=== PATIENT | female | born 1950 | race American Indian/Alaskan Native ===

== ENCOUNTER 2018-05-03 07:54 | Outpatient (CLI) | payer MEDICARE ==
--- NOTE | 2018-05-03 18:31 | Cat Scan Report ---
FINAL REPORT EXAM: CT ABDOMEN PELVIS WO CON HISTORY: COLICKY LOWER LEFT QUADRANT PAIN, LLQ ABDOMINAL TENDERNESS TECHNIQUE: Spiral CT scanning of the abdomen and pelvis. No IV contrast administered. Oral contrast was administered. Multiplanar reformations. PRIORS: None. FINDINGS: Abdomen: Examination limited due to lack of contrast administration. Visualized lung bases show diffuse, reticulo-nodular opacities or infiltrates bilaterally. Dense and nodular fibroglandular parenchyma for residual in the bilateral breasts. No radiopaque gallstones. Liver grossly unremarkable. Spleen grossly unremarkable. Pancreas diffusely small or atrophic without focal abnormality. Punctate calcification noted in the right kidney measuring 1-2 mm, without significant hydronephrosis. Left kidney grossly unremarkable. Adrenal glands grossly unremarkable. Pelvis: Diverticular change in the ascending, descending and sigmoid colon. Remainder of visualized bowel grossly unremarkable. Appendix within normal limits. No significant free peritoneal fluid or loculated fluid collection. Abdominal aorta non-aneurysmal. Axial skeleton grossly unremarkable. IMPRESSION: 1. Punctate, nonobstructing right renal calcification. No significant right hydronephrosis. 2. Diverticulosis. 3. Findings which may represent bibasilar atelectasis, patchy infiltrates or postinflammatory change versus interstitial lung disease or pneumonitis of uncertain etiology or chronicity. Correlate clinically.
== END 2018-05-03 07:55 | disposition home or self-care (01) ==
LOC: CT 07:54
PROVIDERS: ATTEND Family Medicine
DX: K57.90 Diverticulosis of intestine, part unspecified, without perforation or abscess without bleeding (principal); N28.89 Other specified disorders of kidney and ureter
CPT/HCPCS: 74176